=== PATIENT | female | born 1965 | race African-American/Black ===

== ENCOUNTER 2019-10-17 05:32 | Emergency (ER) | payer MEDICAID ==
[~2019-10-17] VITALS: Ht 170.2 cm; Wt 70.3 kg
[~2019-10-17 05:32] MED LIST: HYDR12.56
[2019-10-17 06:00] VITALS: BP 165/98
== END 2019-10-17 08:41 | disposition left against medical advice (07) ==
LOC: ER 05:32
DX: R05 Cough (principal); Z53.21 Procedure and treatment not carried out due to patient leaving prior to being seen by health care provider

== ENCOUNTER 2020-05-09 23:08 | Emergency (ER) | payer MEDICAID ==
[2020-05-09 23:47] VITALS: BP 150/90
== END 2020-05-10 00:19 | disposition home or self-care (01) ==
LOC: ER 23:09
DX: N81.4 Uterovaginal prolapse, unspecified (principal); I10 Essential (primary) hypertension; Z88.6 Allergy status to analgesic agent

== ENCOUNTER 2023-03-19 23:09 | Emergency (ER) | payer MEDICAID ==
[~2023-03-19] VITALS: Ht 172.7 cm; Wt 85.0 kg
[~2023-03-19 23:09] MED LIST changes: +ASPI-736 PO; +ATOR20TA50 PO; +CAR125T PO; +FAMO-12 PO; +FURO1TAB33 PO; -HYDR12.56; +HYDR12.59; +IPRIH INH; +LOSA25TA15 PO; +POTA-220 PO
[2023-03-19 23:50] VITALS: BP 149/78
[2023-03-20 00:20] VITALS: PULSE 94; RESP 18; O2SAT 97
== END 2023-03-20 00:53 | disposition home or self-care (01) ==
LOC: ER 23:09
DX: N93.9 Abnormal uterine and vaginal bleeding, unspecified (principal); I10 Essential (primary) hypertension; Z88.8 Allergy status to other drugs, medicaments and biological substances; Z79.899 Other long term (current) drug therapy